=== PATIENT | female | born 2000 | race Caucasian/White ===

== ENCOUNTER 2018-06-15 15:52 | Emergency (ER) | payer SELFPAY ==
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
[2018-06-15 16:49] VITALS: BP 119/77; PULSE 66; TEMP 98.5; BMI 21.8
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
== END 2018-06-15 17:29 | disposition home or self-care (01) ==
LOC: JER 15:52
DX: S00.81XA Abrasion of other part of head, initial encounter (principal); Y04.2XXA Assault by strike against or bumped into by another person, initial encounter; Y93.89 Activity, other specified; Y92.218 Other school as the place of occurrence of the external cause; Y99.8 Other external cause status; Y07.9 Unspecified perpetrator of maltreatment and neglect
CPT/HCPCS: 84703; 99281-25